=== PATIENT | male | born 1990 | race Hispanic/Latino ===

== ENCOUNTER 2024-01-12 13:23 | Emergency (ER) | payer OTHER ==
[2024-01-12] MEDS ORDERED: Acetaminophen 325 MG TAB ONE (13:55)
[2024-01-12] MEDS ORDERED: Ketorolac Tromethamine 30 MG (1 mL) VIAL ONE (13:55)
[2024-01-12 14:23] LABS: Troponin I Less than 0.010 ng/mL (< 0.028)
== END 2024-01-12 14:50 | disposition home or self-care (01) ==
LOC: CSHERS 13:23
DX: R07.9 Chest pain, unspecified (principal); I10 Essential (primary) hypertension; F19.10 Other psychoactive substance abuse, uncomplicated; F17.210 Nicotine dependence, cigarettes, uncomplicated
CPT/HCPCS: 93005; 96374; J1885